=== PATIENT | male | born 1995 | race Caucasian/White ===

== ENCOUNTER 2023-03-25 08:58 | Outpatient (AMB) | payer OTHER, SELFPAY ==
[2023-03-25 09:01] VITALS: BP 110/64; PULSE 64; O2SAT 96; BMI 33.5
--- NOTE | 2023-03-25 09:01 | MHC.PC.OV ---
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 Accompanied by: Self / Same As Patient Allergies No Known Allergies Allergy (Verified 03/25/23 09:25) Medication List - Last Reconciled 03/25/23 by Vlad Dean MD No Known Home Meds Tobacco use date assessed: 03/25/23 Dental Screening Dental Screen Date: 03/25/23 Did you have a dental visit in the last 12 months?: No Did you have a dental problem in the last 6 months where you did not have access to dental care?: No Was dental information given to patient?: Patient has dentist HPI New patient-requesting physical HPI Details Patient comes in today for his annual physical examination and to establish care - is a new patient to the practice States that he has not seen his previous PCP in about 5 years Patient states that he has been experiencing increased pain in his right knee for a while now Notes that the pain is more prominent when he is walking/going down stairs Feels that his knee is sometimes swollen Does not recall any injury or trauma to his knee and denies any surgery done to his knee in the past He denies any headaches or dizziness Denies any chest pains, no SOB No nausea/vomiting, no abdominal pain No change in bowel habits noted Denies any acute urinary symptoms PFSH Medical History (Updated 03/25/23 @ 09:51 by Vlad Dean MD) Recreational drug use, episodic Vapes non-nicotine containing substance Depression Obesity (BMI 30-39.9) Surgical History (Updated 03/25/23 @ 09:31 by Vlad Dean MD) No pertinent past surgical history Family History Other FH: mental illness Prostate cancer Substance abuse Social History (Updated 03/25/23 @ 09:32 by Vlad Dean MD) Housing: House Alcohol intake: current Alcohol intake frequency: holidays/special occasions only Patient Tobacco Use Status: Never used Tobacco e-Cigarette/Vaping Use: Currently Using Substance Use Type: Marijuana service: No Current occupational status: employed Current occupational exposures/hazards: No Cognitive needs: No Hearing needs: No Vision needs: No Questionnaire PHQ-9 Over the last 2 weeks, how often have you been bothered by any of the following problems? 1. Little interest or pleasure in doing things: more than half the days 2. Feeling down, depressed, or hopeless: more than half the days 3. Trouble falling or staying asleep, or sleeping too much: not at all 4. Feeling tired or having little energy: more than half the days 5. Poor appetite or overeating: more than half the days 6. Feeling bad about yourself - or that you are a failure or have let yourself or your family down: more than half the days 7. Trouble concentrating on things, such as reading the newspaper or watching television: more than half the days 8. Moving or speaking so slowly that other people could have noticed. Or the opposite - being so fidgety or restless that you have been moving around a lot more than usual: not at all 9. Thoughts that you would be better off or of hurting yourself in some way: not at all Total score: 12 Depression Screening Interpretation: Positive Depression Screening Follow-up: Existing condition and Community Mental Health Worker F/U Depression Screening Done: Yes [id number] - PHQ-9 Billing: Yes Source: Developed by Drs. Giuseppe Starks, Anita Perez, Ren Espino and colleagues, with an educational raven from [employer]. Thrive Questionnaire Date Thrive assessed: 03/25/23 I am a: Patient What is your living situation today?: I have a steady place to live Within the past 12 months, did the food you bought not last and you didn't have the money to get more?: Never true Within the past 12 months, did you worry whether your food would run out before you got money to buy more?: Never true Do you have trouble paying for medicines?: No Do you have trouble getting transportation to medical appointments?: No Do you have trouble paying your heating and electricity bill?: No Do you have trouble taking care of your child, family member or friend?: No Do you have trouble with day-to-day activities such as bathing, preparing meals, shopping, managing finances, etc.?: No Are you currently unemployed and looking for a job?: No Are you interested in more education?: No Please select the resources that you would like help with: None Currently or been in a relationship where the following occur: no concerns reported AUDIT C Alcohol Use Questionnaire (AUDIT-C) 1. How often do you have a drink containing alcohol?: 2-4 times a month 2. How many drinks containing alcohol do you have on a typical day when you are drinking?: 1 or 2 3. How often do you have six or more drinks on one occasion?: Less than monthly Total Score: 3 Score Reviewed/Action Taken: Yes JERRY-7 AMB Questionnaire JERRY-7 Date JERRY - 7 assessed: 03/25/23 Feeling nervous, anxious, or on edge: 1 = Several days Not being able to stop or control worryin = Several days Worrying too much about different things: 1 = Several days Trouble relaxin = Several days Being so restless that it is hard to sit still: 0 = Not at all Becoming easily annoyed or irritable: 2 = More than half the days Feeling afraid as if something awful might happen: 2 = More than half the days Total JERRY-7 score (0-4 normal; 5-9 mild; 10-14 moderate; 15-21 severe): 8 Source: Developed by Drs. Giuseppe Starks, Anita Perez, Ren Espino and colleagues, with an educational raven from [employer]. Review of Systems Const Denies chills, Denies difficulty sleeping, Denies fatigue, Denies fever(s), Denies headache(s), Denies malaise and Denies weakness Eyes Denies blurry vision, Denies change in vision, Denies irritation and Denies itchy eyes ENT Denies dysphagia, Denies dizziness, Denies otalgia, Denies headache(s), Denies nasal congestion, Denies neck pain, Denies odynophagia and Denies sore throat Card Denies chest pain, Denies rapid heart rate, Denies irregular heart rhythm, Denies palpitations and Denies dyspnea Resp Denies chest congestion, Denies cough, Denies dyspnea and Denies wheezing GI Denies abdominal pain, Denies bloating, Denies constipation, Denies dysphagia, Denies heartburn, Denies diarrhea, Denies nausea, Denies odynophagia and Denies vomiting Denies hematuria, Denies difficulty urinating, Denies dysuria, Denies urinary frequency and Denies urinary urgency Musc Denies back pain, Reports arthralgias (increasing over the right knee), Denies joint swelling, Denies muscle weakness and Denies neck pain Skin/Breast Denies change in pigmentation, Reports lesions ((+) scattered few skin tags), Denies rash and Denies unusual bruising Neuro Denies dizziness, Denies headache(s), Denies paresthesias and Denies weakness Psych Denies anxiety, Reports depression (has never taken any Rx but is interested in getting therapy/counseling) and Denies suicidal ideation Endo Denies fatigue and Denies palpitations Aller/Immun Denies itchy eyes and Denies wheezing Physical exam (Primary Care) Vital Signs: Last Vital Signs Pulse 64 03/25/23 09:01 BP 110/64 03/25/23 09:01 Pulse Ox 96 03/25/23 09:01 Oxygen Delivery Method Room Air 03/25/23 09:01 BMI result Body Mass Index 33.5 Tobacco/Smoking Status: Tobacco use Status Tobacco use date assessed 03/25/23 03/25/23 09:09 Patient Tobacco Use Status Never used Tobacco 03/25/23 09:09 e-Cigarette/Vaping Use Currently Using 03/25/23 09:09 PHQ-9: PHQ-9 Score PHQ-9: Total score 12 03/25/23 09:09 Depression Screening Interpretation: Positive Depression Screening Follow-up: Existing condition and Community Mental Health Worker F/U Thrive Assessment: Date of Thrive Assessment Date Thrive assessed 03/25/23 03/25/23 09:09 Currently or been in a relationship where the following occur: no concerns reported Const General: no acute distress, alert and awake Orientation/consciousness: patient oriented x3 HENMT Head: Yes normocephalic and Yes atraumatic Ears: external ears normal, TM's normal bilaterally and EAC's normal General nose exam: No nasal discharge present Face and sinus: Yes normal facial exam and Yes sinuses nontender Teeth and gingiva: dentition normal Throat: Yes posterior oropharynx normal and Yes tonsils normal (no TP congestion) Eyes Eyelids: Yes eyelids normal Conjunctivae: conjunctivae normal Pupils: Equal, round and reactive pupils present EOM: EOMs intact bilaterally Neck Neck: Yes no lymphadenopathy and Yes supple Thyroid: Thyroid normal Resp Auscultation: clear to auscultation bilaterally, no rales and no wheezes Cardio Rate: regular rate Rhythm: regular rhythm Heart sounds: no murmurs GI Palpation (GI): Soft to palpation, nontender and No hepatosplenomegaly present Auscultation: normal bowel sounds General: Yes no CVA tenderness Back/Spine/Pelvis Back: no CVA tenderness Thoracic/Lumbar Spine: thoracic and lumbar spine normal to inspection Skin Other: (+) scattered erythematous rash and a few skin tags around the anterior neck area, more to the right side Neuro General: patient oriented x3, moves all extremities, no focal motor deficits and CN's II-XI intact bilaterally Cranial nerves: Yes Equal, round and reactive pupils present Cognition (Neuro): normal cognition Gait exam (Neuro): Normal gait present Extrem General: Yes no clubbing, cyanosis or edema Right lower extremity: knee Details: tenderness Location: of the medial joint line; no swelling Assessment and Plan Assessment & Plan (1) Annual physical exam: Code(s): Z00.00 - Encounter for general adult medical examination without abnormal findings Plan: Will send him for some routine labs TASNEEM to complete his annual physical today (2) Right knee pain: Code(s): M25.561 - Pain in right knee Qualifiers: Chronicity: unspecified Qualified Code(s): M25.561 - Pain in right knee Plan: Will send him for x-rays of the right knee for further evaluation (3) Skin tags, multiple acquired: Code(s): L91.8 - Other hypertrophic disorders of the skin Plan: Will refer him to dermatology for further evaluation and management and excision if appropriate Advised that he also has some scattered rash around his neck area that appear to be mostly eczema related to shaving and dermatology can also help look into these (4) Vapes non-nicotine containing substance: Code(s): Z72.89 - Other problems related to lifestyle Plan: Counseled on dangers of vaping, even for non-nicotine agents and is encouraged to quit (5) Recreational drug use, episodic: Code(s): F19.90 - Other psychoactive substance use, unspecified, uncomplicated Plan: Counseled as well on potential risks, dangers and disadvantages of recreational drug use (6) Depression: Code(s): F32.A - Depression, unspecified Qualifiers: Depression Type: major depressive disorder Major depression recurrence: recurrent Active/Remission status: currently active Major depression episode severity: unspecified Qualified Code(s): F33.9 - Major depressive disorder, recurrent, unspecified Plan: Per request, will refer to [facility] for counseling / therapy (7) Obesity (BMI 30-39.9): Code(s): E66.9 - Obesity, unspecified Plan: Discussed diet/exercise as tolerated/lose weight Plan Follow up in 6 months Orders: Orders Cholesterol Today Z00.00 - Encounter for general adult medical examination without abnormal findings XR knee RT 4V Today M25.561 - Pain in right knee Complete Blood Count Auto Diff Today Z00.00 - Encounter for general adult medical examination without abnormal findings Comprehensive Met. Panel Today Z00.00 - Encounter for general adult medical examination without abnormal findings TSH reflex Free T4 Today E66.9 - Obesity, unspecified, Z00.00 - Encounter for general adult medical examination without abnormal findings UA CC w/rflx Micro + Cult Today R30.0 - Dysuria, Z00.00 - Encounter for general adult medical examination without abnormal findings Vitamin D 25-OH Total Today E55.9 - Vitamin D deficiency, unspecified, Z00.00 - Encounter for general adult medical examination without abnormal findings Referrals Dermatology Referral L91.8 - Other hypertrophic disorders of the skin Psychiatry Referral F32.A - Depression, unspecified Coding Level of Care Code New Pt Prev Care 18-39yr([id number] Diagnoses Annual physical exam Z00.00 Right knee pain, unspecified chronicity M25.561 Chronicity: unspecified Skin tags, multiple acquired L91.8 Vapes non-nicotine containing substance Z72.89 Recreational drug use, episodic F19.90 Episode of recurrent major depressive disorder, unspecified depression episode severity F33.9 Depression Type: major depressive disorder Major depression recurrence: recurrent Active/Remission status: currently active Major depression episode severity: unspecified Obesity (BMI 30-39.9) E66.9
== END 2023-03-25 09:45 | disposition home or self-care (01) ==
PROVIDERS: PCP Internal Medicine; Visit Provider Internal Medicine
DX: Z00.00 Encounter for general adult medical examination without abnormal findings (principal); F33.9 Major depressive disorder, recurrent, unspecified; M25.561 Pain in right knee; L91.8 Other hypertrophic disorders of the skin; Z72.89 Other problems related to lifestyle; F19.90 Other psychoactive substance use, unspecified, uncomplicated; E66.9 Obesity, unspecified; Z68.33 Body mass index [BMI] 33.0-33.9, adult
CPT/HCPCS: 99385

== ENCOUNTER 2023-03-25 09:55 | Outpatient (REF) | payer OTHER, SELFPAY ==
--- NOTE | ~2023-03-25 | XR_ITS ---
EXAMINATION: XR KNEE, RIGHT CLINICAL INFORMATION: Pain of the right knee COMPARISON: None available. TECHNIQUE: Four views of the right knee. FINDINGS: No fracture or joint effusion. Alignment is anatomic. Joint spaces are maintained. No abnormal soft tissue calcification. XR/XR knee RT 4V IMPRESSION: Normal right knee. No specific source of pain is identified.
[2023-03-25 10:17] LABS: MANUAL DIFF FLAG NO
[2023-03-25 10:36] LABS: Basophils Absolute Auto 0.1 X10*3/uL (0.0-0.2); Basophils Percent Auto 0.8 % (0-2); Eosinophils Absolute Auto 0.2 X10*3/uL (0.0-0.4); Eosinophils Percent Auto 3.3 % (0-4); Hematocrit 43.2 % (42.0-52.0); Hemoglobin 15.1 g/dl (14.0-18.0); Imm Gran Abs Auto 0.02 X10*3/uL (0.00-0.03); Imm Gran Pct Auto 0.3 % (0.0-0.4); Lymphocytes Absolute Auto 1.7 X10*3/uL (1.2-4.9); Mean Corpuscular Hemoglobin 30.8 pg (27.0-33.0); Mean Corpuscular Volume 88.2 fL (80.0-98.0); Mean Platelet Volume 10.7 fL (9.4-12.4); Monocytes Absolute Auto 0.6 X10*3/uL (0.1-1.2); Monocytes Percent Auto 8.3 % (2-11); Neutrophils Absolute Auto 4.6 x10*3/uL (2.0-8.3); Neutrophils Percent Auto 63.3 % (45-73); Platelet Count 208 X10*3/uL (160-400); White Blood Count 7.3 X10*3/uL (4.8-10.8)
[2023-03-25 11:07] LABS: Alanine Aminotransferase 28 U/L (0-40); Albumin Level 4.3 g/dL (3.5-5.0); Alkaline Phosphatase 72 U/L (39-117); Anion Gap 10 (12-20); Aspartate Amino Transferase 20 U/L (5-37); Bilirubin Total 0.6 mg/dL (0.0-1.0); Blood Urea Nitrogen 13 mg/dL (9-16); Calcium 9.3 mg/dL (8.4-10.2); Carbon Dioxide 25 mmol/L (22-29); Chloride 109 mmol/L (96-108); Cholesterol 151 mg/dL (<200); Estimated Glomerular Filt Rate > 60; Glucose Random 103 mg/dL (60-115); Potassium 4.2 mmol/L (3.3-5.1); Sodium 140 mmol/L (135-145); Total Protein 6.8 g/dL (6.5-8.0)
[2023-03-25 11:12] LABS: Appearance Urine Clear; Color Urine Yellow; Glucose Urine UA Negative (Negative); Leukocyte Esterase Urine Negative (Negative); Nitrite Urine Negative (Negative); PH 7.5 (5.0-9.0); Urine Blood Negative (Negative); Urine Ketones Negative (Negative); Urine Protein Negative (Neg-Trace)
[2023-03-25 11:27] LABS: TSH reflex Free T4 1.33 uIU/mL (0.32-4.0); Vitamin D 25-OH Total 20.8 ng/mL (>30)
== END 2023-03-25 09:56 | disposition home or self-care (01) ==
LOC: HO.XRAY 09:55
PROVIDERS: PCP Internal Medicine; Visit Provider Internal Medicine
DX: Z00.00 Encounter for general adult medical examination without abnormal findings (principal); E55.9 Vitamin D deficiency, unspecified; E66.9 Obesity, unspecified; R30.0 Dysuria; M25.561 Pain in right knee
CPT/HCPCS: 36415; 73564; 80053; 81003; 82306; 82465; 84443; 85025

== ENCOUNTER 2023-09-24 09:28 | Outpatient (AMB) | payer OTHER, SELFPAY ==
[2023-09-24 09:37] VITALS: BP 116/80; PULSE 68; O2SAT 98; BMI 32.3
--- NOTE | 2023-09-24 09:37 | A.OFFPC_ITS ---
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 Allergies No Known Allergies Allergy (Verified 09/24/23 10:00) Medication List - Last Reconciled 09/24/23 by Vlad Dean MD No Known Home Meds Tobacco use date assessed: 03/25/23 Dental Screening Dental Screen Date: 03/25/23 HPI 6 month f/u HPI Details Patient comes in today for his follow up visit States that he feels okay States that his right knee still bothers him off and on but notes that this tends to occur only with prolonged periods of inactivity like long car rides - states that his knee tends to feel more stiff than actual pain in these cases He denies any headaches or dizziness Denies any chest pains, no SOB No nausea/vomiting, no abdominal pain No change in bowel habits noted He would like to know how he did overall on his labs done a few months ago [facility] Medical History Vitamin D deficiency Recreational drug use, episodic Vapes non-nicotine containing substance Depression Obesity (BMI 30-39.9) Surgical History No pertinent past surgical history Family History Other FH: mental illness Prostate cancer Substance abuse Social History Housing: House Alcohol intake: current Alcohol intake frequency: holidays/special occasions only Patient Tobacco Use Status: Never used Tobacco e-Cigarette/Vaping Use: Currently Using Substance Use Type: Marijuana service: No Current occupational status: employed Current occupational exposures/hazards: No Cognitive needs: No Hearing needs: No Vision needs: No Questionnaire Thrive Questionnaire Date Thrive assessed: 03/25/23 AUDIT C Alcohol Use Questionnaire (AUDIT-C) 1. How often do you have a drink containing alcohol?: 2-4 times a month 2. How many drinks containing alcohol do you have on a typical day when you are drinking?: 1 or 2 3. How often do you have six or more drinks on one occasion?: Less than monthly Total Score: 3 Score Reviewed/Action Taken: Yes JERRY-7 AMB Questionnaire JERRY-7 Date JERRY - 7 assessed: 03/25/23 Source: Developed by Drs. Giuseppe Starks, Anita Perez, Ren Espino and colleagues, with an educational raven from [employer]. Review of Systems Const Denies chills, Denies fatigue, Denies fever(s) and Denies headache(s) ENT Denies dysphagia, Denies dizziness, Denies otalgia, Denies headache(s), Denies neck pain, Denies odynophagia and Denies sore throat Card Denies chest pain, Denies palpitations and Denies dyspnea Resp Denies cough and Denies dyspnea GI Denies abdominal pain, Denies constipation, Denies dysphagia, Denies heartburn, Denies diarrhea, Denies nausea, Denies odynophagia and Denies vomiting Denies dysuria, Denies nocturia and Denies urinary frequency Musc Denies back pain and Denies neck pain Skin/Breast Denies lesions and Denies rash Neuro Denies dizziness and Denies headache(s) Endo Denies fatigue and Denies palpitations Physical exam (Primary Care) Vital Signs: Last Vital Signs Pulse 68 09/24/23 09:37 BP 116/80 09/24/23 09:37 Pulse Ox 98 09/24/23 09:37 Oxygen Delivery Method Room Air 09/24/23 09:37 BMI result Body Mass Index 32.3 Tobacco/Smoking Status: Tobacco use Status Tobacco use date assessed 03/25/23 09/24/23 09:38 Patient Tobacco Use Status Never used Tobacco 09/24/23 09:38 e-Cigarette/Vaping Use Currently Using 09/24/23 09:38 Thrive Assessment: Date of Thrive Assessment Date Thrive assessed 03/25/23 09/24/23 09:38 Const General: no acute distress and alert HENMT Ears: TM's normal bilaterally and EAC's normal Throat: Yes posterior oropharynx normal and Yes tonsils normal (no TP congestion) Neck Neck: Yes no lymphadenopathy and Yes supple Thyroid: Thyroid normal Resp Auscultation: clear to auscultation bilaterally, no rales and no wheezes Cardio Rate: regular rate Rhythm: regular rhythm Heart sounds: no murmurs GI Palpation (GI): Soft to palpation and nontender Auscultation: normal bowel sounds General: Yes no CVA tenderness Back/Spine/Pelvis Back: no CVA tenderness Skin Lesions: no lesions Rashes: no rashes Extrem General: Yes no clubbing, cyanosis or edema Results Reviewed Results Reviewed: Laboratory Tests 03/25/23 10:15 WBC 7.3 Hgb 15.1 Hct 43.2 Plt Count 208 Sodium 140 Potassium 4.2 Creatinine 0.87 Estimated GFR > 60 Random Glucose 103 Calcium 9.3 AST 20 ALT 28 Cholesterol 151 25-OH Vitamin D Total 20.8 L TSH 1.33 Ur Specific [place] 1.020 Urine Protein Negative Urine Glucose (UA) Negative Urine Blood Negative Urine Nitrite Negative Ur Leukocyte Esterase Negative Assessment and Plan Assessment & Plan (1) Vitamin D deficiency: Code(s): E55.9 - Vitamin D deficiency, unspecified Plan: Results of his labs done earlier this year reviewed and discussed with patient - he is advised that other than his low Vitamin D level, all of his labs came back normal Continue OTC Vitamin D3 2000 units QD Will recheck his Vitamin D level and labs in 6 months for follow up (2) Right knee pain: Code(s): M25.561 - Pain in right knee Qualifiers: Chronicity: unspecified Qualified Code(s): M25.561 - Pain in right knee Plan: He is advised that his right knee x-rays done earlier this year came back completely normal as well and there were no findings on his x-rays to help explain his recurrent knee pain Have advised him for now to continue with his regular knee stretches and exercise to help strengthen the right knee joint and surrounding muscles and that may actually help alleviate a lot of his knee symptoms If his right knee issues persist, can consider referring him to orthopedics for further evaluation (3) Cutaneous wart: Code(s): B07.9 - Viral wart, unspecified Qualifiers: Viral wart type: other viral wart Qualified Code(s): B07.8 - Other viral warts Plan: Patient states that the skin tags that he was previously referred to dermatology for were removed by dermatology when he was seen and was advised that these were actually warts and not just normal skin tags Follow up with dermatology as scheduled or as needed (4) Vapes non-nicotine containing substance: Code(s): Z72.89 - Other problems related to lifestyle Plan: Counseled again on the dangers of vaping, even for non-nicotine agents and is encouraged to quit (5) Recreational drug use, episodic: Code(s): F19.90 - Other psychoactive substance use, unspecified, uncomplicated Plan: Counseled again on the potential risks and dangers of recreational drug use and reminded him to practice this responsibly (6) Depression: Code(s): F32.A - Depression, unspecified Qualifiers: Depression Type: major depressive disorder Major depression recurrence: recurrent Active/Remission status: currently active Major depression episode severity: unspecified Qualified Code(s): F33.9 - Major depressive disorder, recurrent, unspecified Plan: Follow up with [facility] as scheduled for continuing counseling / therapy (7) Obesity (BMI 30-39.9): Code(s): E66.9 - Obesity, unspecified Plan: Reinforced diet/exercise as tolerated/lose weight - he has managed to lose some weight since his last visit Plan To return in 6 months for his next annual physical examination Patient is advised to get his follow up labs done before his appointment so we can also go over his results while he is being seen Orders: Orders Complete Blood Count Auto Diff 6 Months D64.9 - Anemia, unspecified, Z00.00 - Encounter for general adult medical examination without abnormal findings UA CC w/rflx Micro + Cult 6 Months R30.0 - Dysuria, Z00.00 - Encounter for general adult medical examination without abnormal findings Cholesterol 6 Months Z00.00 - Encounter for general adult medical examination without abnormal findings Comprehensive Met. Panel 6 Months Z00.00 - Encounter for general adult medical examination without abnormal findings TSH reflex Free T4 6 Months E78.00 - Pure hypercholesterolemia, unspecified, Z00.00 - Encounter for general adult medical examination without abnormal findings Vitamin D 25-OH Total 6 Months E55.9 - Vitamin D deficiency, unspecified, Z00.00 - Encounter for general adult medical examination without abnormal findings Coding Level of Care Code Est Pt Level 4 (39651) Diagnoses Vitamin D deficiency E55.9 Right knee pain, unspecified chronicity M25.561 Chronicity: unspecified Other viral warts B07.8 Viral wart type: other viral wart Vapes non-nicotine containing substance Z72.89 Recreational drug use, episodic F19.90 Episode of recurrent major depressive disorder, unspecified depression episode severity F33.9 Depression Type: major depressive disorder Major depression recurrence: recurrent Active/Remission status: currently active Major depression episode severity: unspecified Obesity (BMI 30-39.9) E66.9
== END 2023-09-24 10:07 | disposition home or self-care (01) ==
PROVIDERS: PCP Internal Medicine; Visit Provider Internal Medicine
DX: E55.9 Vitamin D deficiency, unspecified (principal); F33.9 Major depressive disorder, recurrent, unspecified; Z68.32 Body mass index [BMI] 32.0-32.9, adult; E66.9 Obesity, unspecified; M25.561 Pain in right knee; Z72.89 Other problems related to lifestyle; B07.8 Other viral warts; F19.90 Other psychoactive substance use, unspecified, uncomplicated
CPT/HCPCS: 99214

== ENCOUNTER 2024-03-28 17:12 | Outpatient (AMB) | payer OTHER, SELFPAY ==
--- NOTE | 2024-03-28 17:20 | A.OFFPC_ITS ---
Vital Signs 03/28/24 17:23 Height 5 ft 10 in Weight 237 lb 4 oz BMI 34.0 BP 108/72 Blood Pressure Location Lt brachial Position Sitting Pulse 73 Pulse Source Pulse Oximeter Temp 97.8 F Temp Source Temporal Artery Scan Pulse Oximetry (%) 98 Oxygen Delivery Method Room Air Intake Visit Reasons: annual exam Adjutant General Required: No Accompanied by: Self / Same As Patient Allergies No Known Allergies Allergy (Verified 03/28/24 17:30) Medication List - Last Reconciled 03/28/24 by Vlad Dean MD No Known Home Meds Tobacco use date assessed: 03/25/23 Dental Screening Dental Screen Date: 03/25/23 [facility] Medical History Vitamin D deficiency Recreational drug use, episodic Vapes non-nicotine containing substance Depression Obesity (BMI 30-39.9) Surgical History No pertinent past surgical history Family History Other FH: mental illness Prostate cancer Substance abuse Social History Housing: House Alcohol intake: current Alcohol intake frequency: holidays/special occasions only Patient Tobacco Use Status: Never used Tobacco e-Cigarette/Vaping Use: Currently Using Substance Use Type: Marijuana service: No Current occupational status: employed Current occupational exposures/hazards: No Cognitive needs: No Hearing needs: No Vision needs: No Questionnaire PHQ-9 Over the last 2 weeks, how often have you been bothered by any of the following problems? 1. Little interest or pleasure in doing things: not at all 2. Feeling down, depressed, or hopeless: not at all 3. Trouble falling or staying asleep, or sleeping too much: not at all 4. Feeling tired or having little energy: not at all 5. Poor appetite or overeating: not at all 6. Feeling bad about yourself - or that you are a failure or have let yourself or your family down: not at all 7. Trouble concentrating on things, such as reading the newspaper or watching television: not at all 8. Moving or speaking so slowly that other people could have noticed. Or the opposite - being so fidgety or restless that you have been moving around a lot more than usual: not at all 9. Thoughts that you would be better off or of hurting yourself in some way: not at all Total score: 0 Depression Screening Interpretation: Negative Depression Screening Done: Yes 91904 - PHQ-9 Billing: Yes Source: Developed by Drs. Giuseppe Starks, Anita Perez, Ren Espino and colleagues, with an educational raven from [employer]. Thrive Questionnaire Date Thrive assessed: 03/28/24 I am a: Patient What is your living situation today?: I have a steady place to live Within the past 12 months, did the food you bought not last and you didn't have the money to get more?: Never true Within the past 12 months, did you worry whether your food would run out before you got money to buy more?: Never true Do you have trouble paying for medicines?: No Do you have trouble getting transportation to medical appointments?: No Do you have trouble paying your heating and electricity bill?: No Do you have trouble taking care of your child, family member or friend?: No Do you have trouble with day-to-day activities such as bathing, preparing meals, shopping, managing finances, etc.?: No Are you currently unemployed and looking for a job?: No Are you interested in more education?: No Please select the resources that you would like help with: None Currently or been in a relationship where the following occur: No concerns reported THRIVE Score: 0 AUDIT C Alcohol Use Questionnaire (AUDIT-C) 1. How often do you have a drink containing alcohol?: Monthly or less 2. How many drinks containing alcohol do you have on a typical day when you are drinking?: 3 or 4 3. How often do you have six or more drinks on one occasion?: Less than monthly Total Score: 3 JERRY-7 AMB Questionnaire JERRY-7 Date JERRY - 7 assessed: 03/28/24 Feeling nervous, anxious, or on edge: 0 = Not at all Not being able to stop or control worryin = Not at all Worrying too much about different things: 0 = Not at all Trouble relaxin = Not at all Being so restless that it is hard to sit still: 0 = Not at all Becoming easily annoyed or irritable: 0 = Not at all Feeling afraid as if something awful might happen: 0 = Not at all Total JERRY-7 score (0-4 normal; 5-9 mild; 10-14 moderate; 15-21 severe): 0 Source: Developed by Drs. Giuseppe Starks, Anita Perez, Ren Espino and colleagues, with an educational raven from [employer]. JERRY-7 Assessment Billing JERRY-7 Assessment Tool: JERRY-7 Assessment 32334 Physical exam (Primary Care) Vital Signs: Last Vital Signs Temp 97.8 F 03/28/24 17:23 Pulse 73 03/28/24 17:23 BP 108/72 03/28/24 17:23 Pulse Ox 98 03/28/24 17:23 Oxygen Delivery Method Room Air 03/28/24 17:23 BMI result Body Mass Index 34.0 Tobacco/Smoking Status: Tobacco use Status Tobacco use date assessed 03/25/23 03/28/24 17:21 Patient Tobacco Use Status Never used Tobacco 03/28/24 17:21 e-Cigarette/Vaping Use Currently Using 03/28/24 17:21 PHQ-9: PHQ-9 Score PHQ-9: Total score 0 03/28/24 17:27 Depression Screening Interpretation: Negative Thrive Assessment: Date of Thrive Assessment Date Thrive assessed 03/28/24 03/28/24 17:27 Currently or been in a relationship where the following occur: No concerns reported Office Procedures Flu Questionnaire Does the patient have a severe egg allergy?: No Immunizations Fluarix Triv [id number] (PF) 45 mcg (15 mcg x 3)/0.5 mL IM syringe Performing Provider: Vlad Dean MD [place] [facility] [place] [facility] Documented (not given) by: ANAHY East on 03/28/24 17:28 Reason Not Given: Patient Refused Coding Additional Codes JERRY-7 Assessment Billing - JERRY-7 Assessment Tool: JERRY-7 Assessment 30740 ([id number]) PHQ-9 - 53623 - PHQ-9 Billing: Yes ([id number]) Assessment & Plan Assessment & Plan Orders: Orders Influenza [id number] Immunization Today Z23 - Encounter for immunization
[2024-03-28 17:23] VITALS: BP 108/72; PULSE 73; TEMP 36.6; O2SAT 98; BMI 34.0
== END 2024-03-28 17:43 | disposition home or self-care (01) ==
PROVIDERS: PCP Internal Medicine; Visit Provider Internal Medicine
DX: Z23 Encounter for immunization (principal)

== ENCOUNTER → 2024-03-28 17:12 | Outpatient (BNVA) | payer OTHER, SELFPAY | PROVIDERS: PCP Internal Medicine; Visit Provider Internal Medicine | DX: Z00.00 Encounter for general adult medical examination without abnormal findings (principal); J30.9 Allergic rhinitis, unspecified; E55.9 Vitamin D deficiency, unspecified; F33.9 Major depressive disorder, recurrent, unspecified; F19.90 Other psychoactive substance use, unspecified, uncomplicated; E66.9 Obesity, unspecified; Z68.34 Body mass index [BMI] 34.0-34.9, adult; Z72.89 Other problems related to lifestyle; Z79.899 Other long term (current) drug therapy; Z28.21 Immunization not carried out because of patient refusal | CPT/HCPCS: 90471; 96127 ==

== ENCOUNTER 2024-06-16 15:51 | Outpatient (AMB) | payer OTHER, SELFPAY ==
[2024-06-16 16:24] VITALS: BP 104/76; PULSE 110; TEMP 36.5; O2SAT 98; BMI 32.6
--- NOTE | 2024-06-16 16:24 | MHC.PC.OV ---
Vital Signs 06/16/24 16:24 Height 5 ft 10 in Weight 227 lb 6 oz BMI 32.6 BP 104/76 Blood Pressure Location Lt brachial Position Sitting Pulse 110 H Pulse Source Pulse Oximeter Temp 97.7 F Temp Source Temporal Artery Scan Pulse Oximetry (%) 98 Oxygen Delivery Method Room Air Intake Visit Reasons: rash on back, ?lyme disease Allergies No Known Allergies Allergy (Verified 06/16/24 16:36) Tobacco use date assessed: 03/25/23 Dental Screening Dental Screen Date: 03/25/23 HPI rash on back, ?lyme disease HPI Details Patient is a 28-year-old male with past medical history of allergic rhinitis, recreation drug use, vapes not nicotine containing substance, depression, obesity. The patient of Dr. Dean. last seen in office on 03/28/24 Patient is presenting today with complaints of a rash to his upper back for couple weeks now He is concerned of the circular presentation rashes; he wants to make sure it is not Lyme disease The patient denies joint pain or swelling; he denies myalgia, fever, chills Denies being in any wooded areas or seeing any ticks on the his body He denies sob, chest pain, heart palpitation or dizziness PFSH Medical History Allergic rhinitis Vitamin D deficiency Recreational drug use, episodic Vapes non-nicotine containing substance Depression Obesity (BMI 30-39.9) Surgical History No pertinent past surgical history Family History Other FH: mental illness Prostate cancer Substance abuse Social History Housing: House Alcohol intake: current Alcohol intake frequency: holidays/special occasions only Patient Tobacco Use Status: Never used Tobacco e-Cigarette/Vaping Use: Currently Using Substance Use Type: Marijuana service: No Current occupational status: employed Current occupational exposures/hazards: No Cognitive needs: No Hearing needs: No Vision needs: No Questionnaire Thrive Questionnaire Date Thrive assessed: 06/16/24 I am a: Patient What is your living situation today?: I have a steady place to live Within the past 12 months, did the food you bought not last and you didn't have the money to get more?: Never true Within the past 12 months, did you worry whether your food would run out before you got money to buy more?: Never true Do you have trouble paying for medicines?: No Do you have trouble getting transportation to medical appointments?: No Do you have trouble paying your heating and electricity bill?: No Do you have trouble taking care of your child, family member or friend?: No Do you have trouble with day-to-day activities such as bathing, preparing meals, shopping, managing finances, etc.?: No Are you currently unemployed and looking for a job?: No Are you interested in more education?: No Please select the resources that you would like help with: None Currently or been in a relationship where the following occur: No concerns reported THRIVE Score: 0 JERRY-7 AMB Questionnaire JERRY-7 Date JERRY - 7 assessed: 03/28/24 Source: Developed by Drs. Giuseppe Starks, Anita Perez, Ren Espino and colleagues, with an educational raven from [employer]. Review of Systems Const Denies body aches, Denies fatigue, Denies fever(s), Denies headache(s), Denies lethargy and Denies malaise ENT Denies headache(s), Reports nasal congestion, Reports nasal discharge, Reports post nasal drip, Denies sinus pressure and Denies sore throat Card Denies chest pain, Denies leg edema and Denies lightheadedness Resp Denies cough and Denies hemoptysis Musc Denies arthralgias and Denies joint swelling Skin/Breast Denies pruritus, Reports erythema and Reports rash (circular in nature) Neuro Denies headache(s) Endo Denies fatigue Physical exam (Primary Care) Vital Signs: Last Vital Signs Temp 97.7 F 06/16/24 16:24 Pulse 110 H 06/16/24 16:24 BP 104/76 06/16/24 16:24 Pulse Ox 98 06/16/24 16:24 Oxygen Delivery Method Room Air 06/16/24 16:24 BMI result Body Mass Index 32.6 Tobacco/Smoking Status: Tobacco use Status Tobacco use date assessed 03/25/23 06/16/24 16:29 Patient Tobacco Use Status Never used Tobacco 06/16/24 16:29 e-Cigarette/Vaping Use Currently Using 06/16/24 16:29 Thrive Assessment: Date of Thrive Assessment Date Thrive assessed 06/16/24 06/16/24 16:29 Currently or been in a relationship where the following occur: No concerns reported Const General: healthy appearing, no acute distress, alert and awake Nutritional Appearance: well nourished HENMT Ears: TM's normal bilaterally General nose exam: Abnormal mucous membranes and turbinates present boggy and erythematous and Nasal discharge present purulent Eyes Conjunctivae: conjunctivae normal Sclerae: sclerae normal Neck Neck: Yes no lymphadenopathy and Yes no JVD Thyroid: Thyroid normal Carotids: no bruits Resp Effort & Inspection: normal respiratory effort and not tachypneic Auscultation: no crackles, no rales, no rhonchi and no wheezes Cardio Rate: regular rate Rhythm: regular rhythm Heart sounds: no murmurs and normal S1 and S2 GI Palpation (GI): Soft to palpation and Tenderness to palpation present (GI) Auscultation: normal bowel sounds Back/Spine/Pelvis Cervical Spine: No Cervical spine tenderness Thoracic/Lumbar Spine: No thoracic spinal tenderness and No lumbar spinal tenderness Skin Rashes: rashes noted large erythematous circles with skin color in the middle Coding Level of Care Code Est Pt Level 3 (27875) Diagnoses Rash R21 Rhinosinusitis J32.9 Time Spent (min) 31 Assessment & Plan Assessment & Plan (1) Rash: Code(s): R21 - Rash and other nonspecific skin eruption Category: Medical Plan: Upper back perfect circular area-not consistent with lyme disease. The patient denies having any complementary therapy done to his back. Will order labs to further evaluate (2) Rhinosinusitis: Code(s): J32.9 - Chronic sinusitis, unspecified Category: Medical Plan: Hx of allergic rhinitis. The patient turbinates are swollen and erythematous with purulent exudates. Will cover the patient with doxycycline an extend it to 10 days. Discussed with the patient that his rash isn't convincing but the doxycycline is the treatment for Lyme disease, so he is also being covered for that as well. 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
--- OUTSIDE RECORDS SUMMARY | 2024-06-16 16:49 | XMS_ITS | Clinical Summary ---
Author Organization [facility] Address [address] [place] [id number] Phone Care Team Providers Care Panel Installer Name Role Phone Inder Omalley MD Primary Care Provider [phone] Immunizations Immunization Administration Dates Next Due DTaP 5 09/03/1999, 6,03/09/1995,12/25,1994 H1N1 03/19/2009 HPV, Quadrivalent 09/27/2013,05/25/2013,03/27/19 14 Hep B, ped/adol 06/07/1995,1994,1994 Hib (PRP-T) 12/08/1995, 5,1994,10/19 IPV 09/03/1999 Influenza, injectable, quadr ivalent, preservative free 03/27/2013 Influenza, injectable, triva lent, preservative free 03/19/2009,12/15/2007 MMR 09/03/1999,12/08/1995 Meningococcal Conj (Menactra) MCV4P 11/26/2011,0 09/28/2006 OPV 03/09/1995,1994,1994 PPD Test 09/27/2013,08/31/1995 Tdap 09/28/2006 Varicella 10/06/2007,08/23/1996 Social History Tobacco Use Types Packs/Day Years Used Date Smoking Tobacco: Never Comments:Never Smoker Sex and Gender Information Value Date Recorded Sex Assigned at Not on file Legal Sex Male 6:32 PM EDT Gender Identity Not on file Sexual Orientation Not on file Last Filed Vital Signs Vital Sign Reading Time Taken Comments Blood Pressure - - Pulse 64 08/25/2013 10:05 AM EDT Temperature 36.4 ??C (97.6 ??F) 08/25/2013 1 0:05 AM EDT Respiratory Rate - - Oxygen Saturation 97% 08/25/2013 10: 05 AM EDT Inhaled Oxygen Concentration - - Weight 79.7 kg (175 lb 11.3 oz) 014 10:01 AM EDT Height 178.4 cm (5' 10.25 ) 08/25/2013 10:01 AM EDT Body Mass Index 25.03 08/25/2013 10:01 AM EDT Plan of Treatment Health Maintenance Due Date Last Done Comments Hepatitis B Vaccines (3 of 3 - 3-dose series) 08/02/1995 06/07/1995, 1994, 1994 DTaP,Tdap,and Td Vaccines (7 - Td or Tdap) 09/28/2016 09/28/2006, 09/03/1999, 03/01/1996, Additional history exists Influenza Vaccines (#1) 2023 03/27/19 14, 03/19/2009, 12/15/2007 COVID-19 Vaccine ( season) 2023 HIB Vaccines Completed 12/08/1995, 02/13, 1994, Additional history exists IPV Vaccines Completed 09/03/1999, 02/13, 1994, Additional history exists MMR Vaccines Completed 09/03/1999, 12/08/1995 Varicella Vaccines Completed 10/06/2007, 08/23/1996 Meningococcal Vaccine Completed 11/26/2011, 007 HPV Vaccines Completed 09/27/2013, 05/13, 03/27/2013 Hepatitis A Vaccines Aged Out No long er eligible based on patient's age to complete this topic Men B Vaccine Aged Out No longer elig ible based on patient's age to complete this topic Pneumococcal Vaccine Aged Out No long er eligible based on patient's age to complete this topic Care Teams Panel Installer Relationship Specialty Start Date End Date Inder Omalley MD [address] [place] [address] JERRY Mckeon [id number] PCP - General 07/21/17
--- OUTSIDE RECORDS SUMMARY | 2024-06-16 16:49 | XMS_ITS | Encounter Summary ---
Author Organization [facility] Address [address] [place] [address] Phone Care Team Providers Care Emergency Worker Name Role Phone Inder Omalley MD Primary Care Provider Encounter Details Date Type Department Care Team (Late st Contact Info) Description 11/06/2010 Conversion Encounter [facility] - [address] [address] Social History Tobacco Use Types Packs/Day Years Used Date Smoking Tobacco: Never Assessed Sex and Gender Information Value Date Recorded Sex Assigned at Not on file Legal Sex Male 6:32 PM EDT Gender Identity Not on file Sexual Orientation Not on file documented as of this encounter Plan of Treatment Not on file documented as of this encounter Visit Diagnoses Not on filedocumented in this encounter Care Teams Emergency Worker Relationship Specialty [place] [address] [place] [id number] PCP - General 07/21/17 documented as of this encounter
== END 2024-06-16 16:56 | disposition home or self-care (01) ==
LOC: HO.HMCH 15:52
PROVIDERS: PCP Internal Medicine
DX: R21 Rash and other nonspecific skin eruption (principal); J32.9 Chronic sinusitis, unspecified

== ENCOUNTER → 2024-06-16 15:51 | Outpatient (BNVA) | payer OTHER, SELFPAY | PROVIDERS: PCP Internal Medicine ==

== ENCOUNTER 2024-06-17 07:53 | Outpatient (REF) | payer OTHER, SELFPAY ==
--- OUTSIDE RECORDS SUMMARY | 2024-06-17 07:55 | XMS_ITS | Encounter Summary ---
Author Organization [facility] Address [address] [place] [address] Phone Care Team Providers Care Professor Of Languages Name Role Phone Inder Omalley MD Primary Care Provider [phone] Encounter Details Date Type Department Care Team (Late st Contact Info) Description 11/06/2010 Conversion Encounter [facility] - [address] [address] Social History Tobacco Use Types Packs/Day Years [...] on filedocumented in this encounter Care Teams Professor Of Languages Relationship Specialty [place] [address] [place] [id number] PCP - General 07/21/17 documented as of this encounter
--- OUTSIDE RECORDS SUMMARY | 2024-06-17 07:55 | XMS_ITS | Clinical Summary ---
Author Organization [facility] Address [address] [place] [id number] Phone Care Team Providers Care Stock Driver Name Role Phone Inder Omalley MD Primary Care Provider [phone] Immunizations Immunization Administration Dates Next Due DTaP [...] age to complete this topic Care Teams Stock Driver Relationship Specialty Start Date End Date Inder Omalley MD [address] [place] [address] JERRY Mckeon [id number] PCP - General 07/21/17
[2024-06-17 08:05] LABS: MANUAL DIFF FLAG NO
[2024-06-17 08:37] LABS: Basophils Absolute Auto 0.1 X10*3/uL (0.0-0.2); Basophils Percent Auto 0.8 % (0-2); Eosinophils Absolute Auto 0.3 X10*3/uL (0.0-0.4); Eosinophils Percent Auto 2.8 % (0-4); Hematocrit 43.2 % (42.0-52.0); Imm Gran Abs Auto 0.03 X10*3/uL (0.00-0.03); Imm Gran Pct Auto 0.3 % (0.0-0.4); Lymphocytes Absolute Auto 2.2 X10*3/uL (1.2-4.9); Lymphocytes Percent Auto 24.9 % (20-40); Mean Corpuscular HGB Conc 34.7 g/dl (31.0-36.0); Mean Corpuscular Hemoglobin 30.5 pg (27.0-33.0); Mean Platelet Volume 10.1 fL (9.4-12.4); Monocytes Absolute Auto 0.8 X10*3/uL (0.1-1.2); Monocytes Percent Auto 8.9 % (2-11); Neutrophils Absolute Auto 5.5 x10*3/uL (2.0-8.3); Neutrophils Percent Auto 62.3 % (45-73); Platelet Count 258 X10*3/uL (160-400); Red Blood Count 4.91 X10*6/uL (4.60-5.80); Red Cell Distribution Width 12.5 % (11.0-16.0); White Blood Count 8.8 X10*3/uL (4.8-10.8)
[2024-06-17 09:12] LABS: Erythrocyte Sedimentation Rate 1 MM/HR (0-15)
[2024-06-19 18:49] LABS: Lyme Abs Screen <0.90 index
[2024-06-20 02:39] LABS: CRP High Sensitivity 2.5 mg/L
== END 2024-06-17 07:54 | disposition home or self-care (01) ==
LOC: HO.LAB 07:53
PROVIDERS: PCP Internal Medicine
DX: A69.23 Arthritis due to Lyme disease (principal)
CPT/HCPCS: 36415; 85025; 85652; 86141; 86617; 86618